=== PATIENT | male | born 1990 | race Caucasian/White ===

== ENCOUNTER 2023-05-04 11:59 | Emergency (ER) | payer MEDICAID ==
[~2023-05-04] VITALS: Ht 188 cm; Wt 78.0 kg
[2023-05-04 12:07] VITALS: O2SAT 100
[2023-05-04 12:41] LABS: BASOPHILS # (AUTO) 0.1 K/UL (0.0-0.2); BASOPHILS % (AUTO) 0.3 % (0.0-2.0); EOSINOPHILS % (AUTO) 0.1 % (0.0-7.0); HEMATOCRIT 45.1 % (36.7-47.1); HEMOGLOBIN 15.2 g/dL (12.5-16.3); LYMPHOCYTES # (AUTO) 0.9 K/uL (0.8-4.8); LYMPHOCYTES % (AUTO) 4.1 % (20.5-51.5); MEAN CORPUSCULAR HEMOGLOBIN 29.8 uug (23.8-33.4); MEAN CORPUSCULAR HGB CONC 34 g/dL (32.5-36.3); MEAN CORPUSCULAR VOLUME 88.6 fL (73.0-96.2); MONOCYTES # (AUTO) 1.7 K/uL (0.1-1.30); MONOCYTES % (AUTO) 7.9 % (0.0-11.0); NEUTROPHILS # (AUTO) 18.4 K/uL (1.8-8.9); NEUTROPHILS % (AUTO) 87.6 % (38.5-71.5); PLATELET COUNT (AUTO) 357 K/uL (152-348); RED BLOOD CELL COUNT(AUTO) 5.09 MIL/uL (4.06-5.63); RED CELL DISTRIBUTION WIDTH 13.7 % (12.1-16.2); WHITE BLOOD COUNT (AUTO) 21.1 K/uL (3.6-10.2)
[2023-05-04 12:42] LABS: DIFFERENTIAL COMMENT 1
[2023-05-04 12:55] LABS: CALCIUM 9.7 mg/dL (8.5-10.1); CREATININE 0.8 mg/dL (0.6-1.3); POTASSIUM 3.5 mmol/L (3.5-5.1)
[2023-05-04 13:02] LABS: BILIRUBIN,DIRECT 0.3 mg/dL (0.0-0.2); BILIRUBIN,TOTAL 1.2 mg/dL (0.2-1.0)
[2023-05-04 13:03] LABS: ALBUMIN 4.6 g/dL (3.4-5.0); TOTAL PROTEIN, SERUM 7.5 g/dL (6.4-8.2)
[2023-05-04] MEDS ORDERED: IV NORMAL SALINE 1000 ML BAG IV ONE (13:15)
[2023-05-04] MEDS ORDERED: CEFTRIAXONE 2 G in IV DEXTROSE 5% 100 ML IV ONE (13:30)
[2023-05-04] MEDS ORDERED: IOHEXOL 300MG/ML 100 ML INFUS..BTL ONE (13:43)
[2023-05-04] MEDS ORDERED: SWABABLE VALVE TRANSFER SET EA MC ONE (13:43)
[2023-05-04] MEDS ORDERED: IV NORMAL SALINE 250 ML IV ONE (13:43)
[2023-05-04] MEDS ORDERED: METR-147 PO (15:07)
[2023-05-04] MEDS ORDERED: LEVO750T46 PO (15:07)
[2023-05-04 16:10] LABS: *BILIRUBIN,URIN NEGATIVE (NEGATIVE); *BLOOD, URINE NEGATIVE (NEGATIVE); *CLARITY,URINE CLEAR (CLEAR); *COLOR,URINE YELLOW (YELLOW); *KETONES,URINE NEGATIVE (NEGATIVE); *PROTEIN,URINE NEGATIVE (NEGATIVE); *UROBILINOGEN,URINE 0.2 E.U./dl (NORMAL); LEUKOCYTE ESTERASE ,URINE NEGATIVE (NEGATIVE); NITRITE, URINE NEGATIVE (NEGATIVE); PH,URINE 6.5 (5.0-8.0); UGLUCOSE NEGATIVE (NEGATIVE)
== END 2023-05-04 15:16 | disposition home or self-care (01) ==
LOC: ER 11:59
DX: K57.92 Diverticulitis of intestine, part unspecified, without perforation or abscess without bleeding (principal); Z79.899 Other long term (current) drug therapy
CPT/HCPCS: 99285; 74177; 96365; 80076; 80048; 81003; 85025; 36415; J0696; Q9967; J7040; A4606; A4663